=== PATIENT | male | born 1985 | race Two or more races ===

== ENCOUNTER 2018-04-16 09:58 | Emergency (ER) | payer OTHER ==
[~2018-04-16] VITALS: Ht 175.3 cm; Wt 95.3 kg
[2018-04-16 10:00] VITALS: BP 132/65
--- NOTE | 2018-04-16 10:40 | NUR ---
Patient discharged to [facility] (BAD# [id number]) in stable condition. Written and verbal after care instructions given. Patient and [facility] verbalized understanding of instruction.
== END 2018-04-16 10:54 ==
LOC: ER 10:00
DX: Z02.89 Encounter for other administrative examinations (principal); F17.200 Nicotine dependence, unspecified, uncomplicated; Z88.0 Allergy status to penicillin; Z60.2 Problems related to living alone